=== PATIENT | female | born 1930 | race Caucasian/White ===

== ENCOUNTER 2018-07-09 12:26 | Outpatient (CLI) | payer MEDICARE, OTHER ==
--- NOTE | 2018-07-09 13:48 | MMO ---
Bilateral MAMMO Bilat Diag [facility]. CLINICAL HISTORY: Patient is 87 years old and is seen for diagnostic exam and palpable abnormality in the left breast. The patient has no family history of breast cancer. The patient has no personal history of cancer. The patient has a history of right Excisional Biopsy in 2004 - benign. VIEWS: The views performed were: bilateral craniocaudal with tomosynthesis; bilateral mediolateral oblique with tomosynthesis; and bilateral mediolateral. FILMS COMPARED: The present examination has been compared to prior imaging studies performed at [facility] on 01/28/2013, 01/29/2014, 02/07/2015 and 07/09/2018. MAMMOGRAM FINDINGS: The breasts are heterogeneously dense, which could obscure a lesion on mammography. Finding 1: There is an asymmetry seen in the outer region of the right breast. No sonographic abnormality is seen, and this is compatible with superimposed breast tissue. Finding 2: There are no concerning mammographic or sonographic abnormalities in the area of palpable concern. The patient is referred back to her clinician. Negative imaging findings should not preclude biopsy if clinical findings are suspicious. There are no suspicious masses, suspicious calcifications, or new areas of architectural distortion. IMPRESSION: FINDING 2: THERE ARE NO CONCERNING MAMMOGRAPHIC ABNORMALITIES IN THE AREA OF PALPABLE CONCERN. THE PATIENT IS REFERRED BACK TO HER CLINICIAN. NEGATIVE IMAGING FINDINGS SHOULD NOT PRECLUDE BIOPSY IF CLINICAL FINDINGS ARE SUSPICIOUS. A ROUTINE FOLLOW-UP MAMMOGRAM IN 1 YEAR IS RECOMMENDED. THE RESULTS OF THIS EXAM WERE SENT TO THE PATIENT. ACR BI-RADS Category 2 - Benign finding MAMMOGRAPHY NOTE: 1. A negative mammogram report should not delay a biopsy if a dominant of clinically suspicious mass is present. 2. Approximately 10% to 15% of breast cancers are not detected by mammography. 3. Adenosis and dense breasts may obscure an underlying neoplasm.
--- NOTE | 2018-07-09 14:09 | ULT ---
LIMITED RIGHT BREAST ULTRASOUND: Date: 07/09/18 PROVIDED CLINICAL HISTORY: Abnormal mammogram. FINDINGS: Limited sonographic interrogation was performed of the outer right breast in the region of mammograph ic concern. No discrete sonographic abnormality is evident. An area of measured echogenicity on the s ubmitted images is not a persistent finding at real-time imaging. The mammographic abnormality is com patible with superimposed tissue. IMPRESSION: BIRADS Category 2 - Benign findings. Please see concurrently dictated left breast ultrasound and diag nostic mammogram for recommendations. POS: OFF
--- NOTE | 2018-07-09 14:11 | ULT ---
LIMITED LEFT BREAST ULTRASOUND: Date: 07/09/18 PROVIDED CLINICAL HISTORY: Left breast palpable abnormality. FINDINGS: Limited sonographic interrogation of the left breast was performed in the region of palpable concern. A simple cyst is seen, measuring about 7 mm. No concerning sonographic findings. IMPRESSION: BIRADS Category 2 - Benign findings. Negative imaging findings should not preclude further evaluation of clinically suspicious area. The patient is referred back to her clinician. POS: OFF
== END 2018-07-09 12:27 | disposition home or self-care (01) ==
LOC: BICMAMMO 12:26
PROVIDERS: ATTEND Specialist
DX: N63.20 Unspecified lump in the left breast, unspecified quadrant (principal)
CPT/HCPCS: 76642 ×2; 77066; G0279

== ENCOUNTER 2018-07-10 12:08 | Outpatient (CLI) | payer MEDICARE, OTHER ==
--- NOTE | 2018-07-10 12:35 | HP ---
HISTORY OF PRESENT ILLNESS: Pili Madrid, 87-year-old female, who lives in [place]. She has had a left breast mass medial retroareolar for 3 to 4 weeks. It is slightly tender and painful. She is referred by Dr. Bee. I initially saw her a few days ago when she underwent after that visit mammogram ultrasound which were normal. She has a history of fibrocystic disease. Considering the tender nature, plan is to do excisional biopsy under anesthesia choice by anesthesiologist, IV sedation local versus LMA general. FAMILY HISTORY: Negative for breast cancer. She does report a history of fibrocystic disease. SOCIAL HISTORY: Tobacco none. Alcohol none. MEDICATIONS: 1. Pindolol 5 mg once a day. 2. Vitamin K, B6. 3. P.r.n. lorazepam. 4. Prilosec. 5. Tizanidine 2 mg as needed. 6. Trazodone 50 mg at bedtime. 7. Dicyclomine 4 times a day. PAST SURGICAL HISTORY: Postsurgical fusion by Dr. Lyons in 2005; lumbar fusion, 1969; cataract removal without lens implant; right total knee replacement, 2011. PAST MEDICAL HISTORY: Peripheral neuropathy, hypertension, arthritis. REVIEW OF SYSTEMS: Ten-point noncontributory. PHYSICAL EXAMINATION: VITAL SIGNS: Weight 134.2 pounds, height 64 inches, 223 BMI, blood pressure 175/75, heart rate 61, temperature 97 degrees. HEAD, EARS, EYES, NOSE, AND THROAT: Unremarkable. LUNGS: Clear to auscultation. CARDIAC: Regular rate and rhythm. No murmur or gallop. ABDOMEN: Soft and nontender. EXTREMITIES: Unremarkable. BREASTS: Right breast without masses. Axilla, without masses. Left breast, medial retroareolar reveals a 2.5 cm firm mass, that is slightly tender. There are no skin changes. This is beneath the medial areolar area. ASSESSMENT AND PLAN: Left breast mass with negative ultrasound mammogram. Due to its tender nature, I do not think she would tolerate biopsy in the office plus it is small. We would plan excisional biopsy as an outpatient. She understands risks, benefits, and consents. Job ID: [id number]
[2018-07-10 13:30] LABS: #Eosinphils 0.2 thou/uL (0.0-0.7); #Lymphocytes 1.5 thou/uL (1.20-3.40); #Monocytes 0.8 thou/uL (0.11-0.59); #Neutrophils 4.8 thou/uL (1.40-6.50); %Basophils 0.3 % (0.0-1.0); %Eosinophils 2.2 % (0.0-10.0); %Monocytes 10.5 % (0.0-10.0); %Neutrophils 66.1 % (42.0-75.0); Hemoglobin 13.6 g/dL (12.0-16.0); Mean Corpuscular HGB CONC 31.7 g/dL (32.0-36.0); Mean Corpuscular Hemoglobin 32.3 pg (27.0-31.0); Mean Platelet Volume 6.5 fL (7.4-10.4); Platelet Count 254 thou/uL (130-400); White Blood Cell (WBC) Count 7.2 thou/uL (4.8-10.8)
[2018-07-10 13:55] LABS: ALT (SGPT) 14 U/L (8-55); AST (SGOT) 20 U/L (5-34); Albumin 4.2 g/dL (3.4-4.8); Alkaline Phosphatase 67 U/L (40-150); Anion Gap 11 mmol/L (10-20); BUN (Urea Nitrogen) 11 mg/dL (9.8-20.1); Bilirubin, Total 0.5 mg/dL (0.2-1.2); Calc. Creatinine Clearance 0 mL/min (70-130); Calcium 10.2 mg/dL (7.8-10.44); Carbon Dioxide 35 mmol/L (23-31); Chloride 93 mmol/L (98-107); Estimated GFR-MDRD 69; Globulin 2.9 g/dL (2.4-3.5); Glucose 92 mg/dL (83-110); Potassium 4.3 mmol/L (3.5-5.1); Protein, Total 7.1 g/dL (6.0-8.3); Sodium 135 mmol/L (136-145)
== END 2018-07-10 12:09 | disposition home or self-care (01) ==
LOC: LABBT 12:08
PROVIDERS: ATTEND Specialist
DX: Z01.818 Encounter for other preprocedural examination (principal); N63.20 Unspecified lump in the left breast, unspecified quadrant
CPT/HCPCS: 80053; 85025; 93005; 93010

== ENCOUNTER 2018-07-11 06:00 | Day surgery (SDC) | payer MEDICARE, OTHER ==
[2018-07-10 12:22] VITALS: BMI 20.3
[2018-07-11] MEDS ORDERED: Ketorolac Tromethamine 30 MG/ML VIAL ONE (06:25)
[2018-07-11] MEDS ORDERED: Fentanyl 100 MCG/2 ML VIAL ONE ×2 (06:56)
[2018-07-11] MEDS ORDERED: Lidocaine 2% PF 5 ML VIAL ONE (07:15)
[2018-07-11] MEDS ORDERED: Bupivacaine HCl 0.5%/Epinephrine 1:200,000/PF 30 ml Vial ONE (07:15)
--- NOTE | 2018-07-11 11:45 | OP ---
DATE OF PROCEDURE: 07/11/2018 PREOPERATIVE DIAGNOSES: Left breast mass, history of fibrocystic disease. POSTOPERATIVE DIAGNOSIS: Left breast mass, history of fibrocystic disease. PROCEDURE PERFORMED: Excisional biopsy of retroareolar medial left breast mass. ANESTHESIA: LMA general, local of 0.5% Marcaine with epinephrine 30 mL mixed with 2% Xylocaine 10 mL, total volume used. DESCRIPTION OF PROCEDURE: The patient was taken to the operating room, where under general LMA anesthesia, left breast was prepared with ChloraPrep and draped in routine fashion. Local anesthetic was infiltrated in the skin and subcutaneous tissue about the medial areolar border and carried down through the skin and subcutaneous tissue, and the areola and the subcutaneous tissue dissected free from overlying the palpable mass, which was dissected free and excised. It appeared to be fibrocystic disease with greenish discharge. It was submitted to Pathology. Hemostasis was gained with the cautery. Subcutaneous tissue was approximated with 3-0 Monocryl, skin with interrupted subdermal 4-0 Monocryl and biopsy cavity filled with local anesthetic and Dermabond applied. The patient tolerated the procedure well. Job ID: [id number]
[2018-07-11] MEDS ORDERED: Lidocaine 1% PF 5 ML VIAL ONE (16:01)
[2018-07-11] MEDS ORDERED: PROPOFOL 200 MG/20 ML VIAL ONE (16:01)
[2018-07-11] MEDS ORDERED: Ondansetron PF 4 MG/2 ML Vial ONE (16:01)
[2018-07-11] MEDS ORDERED: Dexamethasone 20 MG/5 ML VIAL ONE (16:01)
[2018-07-11] MEDS ORDERED: ePHEDrine 50 MG/ML VIAL ONE (16:01)
== END 2018-07-11 10:30 | disposition home or self-care (01) ==
LOC: SDC 06:00
PROVIDERS: ATTEND Specialist
PROC: 0HBU0ZZ Excision of Left Breast, Open Approach (ICD-10-PCS; principal; 2018-07-11)
DX: N60.32 Fibrosclerosis of left breast (principal); M19.90 Unspecified osteoarthritis, unspecified site; I10 Essential (primary) hypertension; G62.9 Polyneuropathy, unspecified; Z88.2 Allergy status to sulfonamides; Z88.5 Allergy status to narcotic agent; Z79.899 Other long term (current) drug therapy
CPT/HCPCS: 88305; 88342; J0131; J0670; J0690; J1100; J1885; J2001; J2405; J2704; J3010; J3490

== ENCOUNTER 2018-09-17 01:29 | Observation (INO) | payer MEDICARE, OTHER ==
[2018-09-17 02:03] LABS: #Eosinphils 0.2 thou/uL (0.0-0.7); #Lymphocytes 1.1 thou/uL (1.20-3.40); #Monocytes 0.9 thou/uL (0.11-0.59); #Neutrophils 4.1 thou/uL (1.40-6.50); %Basophils 0.5 % (0.0-1.0); %Monocytes 14.1 % (0.0-10.0); %Neutrophils 64.5 % (42.0-75.0); Mean Corpuscular Hemoglobin 31.8 pg (27.0-31.0); Mean Corpuscular Volume 99.3 fL (78.0-98.0); Mean Platelet Volume 6.4 fL (7.4-10.4); Platelet Count 371 thou/uL (130-400); RBC Distribution Width 13.2 % (11.5-14.5); Red Blood Cell (RBC) Count 3.79 mill/uL (4.20-5.40); White Blood Cell (WBC) Count 6.3 thou/uL (4.8-10.8)
[2018-09-17 02:23] LABS: ALT (SGPT) 9 U/L (8-55); AST (SGOT) 15 U/L (5-34); Albumin 3.7 g/dL (3.4-4.8); Alkaline Phosphatase 119 U/L (40-150); Anion Gap 13 mmol/L (10-20); BUN (Urea Nitrogen) 13 mg/dL (9.8-20.1); Bilirubin, Total 0.6 mg/dL (0.2-1.2); CK (CPK) 34 U/L (29-168); Calc. Creatinine Clearance 0 mL/min (70-130); Calcium 9.1 mg/dL (7.8-10.44); Carbon Dioxide 24 mmol/L (23-31); Chloride 89 mmol/L (98-107); Estimated GFR-MDRD 54; Globulin 2.4 g/dL (2.4-3.5); Glucose 120 mg/dL (83-110); Potassium 4.8 mmol/L (3.5-5.1); Protein, Total 6.1 g/dL (6.0-8.3); Sodium 121 mmol/L (136-145)
--- NOTE | 2018-09-17 07:53 | HP ---
PRIMARY CARE PROVIDER: Dr. Kasi Bee. CHIEF COMPLAINT: Generalized weakness and hypotension. HISTORY OF PRESENT ILLNESS: This is an 87-year-old female, who presents to [facility] Emergency Department in transfer from [facility]. The patient has been receiving therapy over the last 2 weeks, status post 4-vessel coronary artery bypass grafting performed at [facility] in [place], [place]. The patient states she had been well with therapy, ambulating up to 330 feet with minimal assistance. The patient was planning to transition home in the next several days, when screening metabolic survey revealed a sodium of 120, associated with hypotension and general weakness. The patient states she has had poor appetite over the last several days with some associated nausea. The patient states she was also initiated on Lexapro in the last 3 weeks after her coronary artery bypass grafting. The patient was apparently lethargic and minimally responsive at the rehab facility prompting the staff to notify EMS personnel. EMS personnel arrived and was able to awaken the patient with stable vital signs. The patient also states she was recently treated with ciprofloxacin for urinary tract infection with urine culture showing E. coli species. The patient denied any unilateral weakness, chest pain, fever, chills, or exposure history. In the emergency room, patient underwent general evaluation with metabolic screening showing a sodium of 121. Serum osmolality 253. PAST MEDICAL HISTORY: 1. Coronary artery disease, status post 4-vessel coronary artery bypass grafting 08/2018. 2. Atrial fibrillation, rate controlled. 3. Hyperlipidemia. 4. Hypertension. 5. Chronic back pain. PAST SURGICAL HISTORY: 1. Status post coronary artery bypass grafting x4 vessels. 2. Status post right total knee arthroplasty. 3. Status post cervical spine surgery. 4. Status post appendectomy. 5. Status post cholecystectomy. 6. Status post partial hysterectomy. CURRENT MEDICATIONS: 1. Enteric-coated aspirin 81 mg p.o. daily. 2. Calcium carbonate 500 mg 1 to 2 tablets p.o. b.i.d. 3. Clonidine 0.1 mg p.o. q.6 hours p.r.n. 4. Gabapentin 300 mg p.o. t.i.d. 5. Potassium chloride 10 mEq p.o. daily. 6. Tramadol 50 mg p.o. q.6 hours p.r.n. pain. 7. Lipitor 20 mg p.o. at bedtime. 8. Amiodarone 200 mg p.o. daily. 9. Tizanidine 4 mg p.o. t.i.d. p.r.n. ALLERGIES: TO CODEINE, STATINS, AND SULFA. FAMILY HISTORY: No inheritable diseases per patient report. SOCIAL HISTORY: Resides in the [facility]. No current alcohol, tobacco, or illicit drug use. Ambulates with a rolling walker. REVIEW OF SYSTEMS: CONSTITUTIONAL: Negative for weight loss or gain, ability to conduct usual activities. SKIN: Negative for rash, itching. EYES: Negative for double vision, pain. ENT/MOUTH: Negative for nose bleeding, neck stiffness, pain, tenderness. CARDIOVASCULAR: Negative for palpitations, dyspnea on exertion, orthopnea. RESPIRATORY: Negative for shortness of breath, wheezing, cough, hemoptysis, fever or night sweats. GASTROINTESTINAL: Negative for poor appetite, abdominal pain, heartburn, nausea, vomiting, constipation, or diarrhea. GENITOURINARY: Negative for urgency, frequency, dysuria, nocturia. MUSCULOSKELETAL: Negative for pain, swelling. NEUROLOGIC/PSYCHIATRIC: Negative for anxiety, depression. ALLERGY/IMMUNOLOGIC: Negative for skin rash, bleeding tendency. Otherwise negative except as stated per HPI. PHYSICAL EXAMINATION: VITAL SIGNS: On admission, blood pressure 116/58, pulse 55, respiratory rate 15, temperature 98.7 degrees Fahrenheit, O2 saturation 95% on room air. GENERAL APPEARANCE: This is an 87-year-old female, alert and oriented x3, pleasant, responsive, in no acute distress. HEENT: Pupils are equal, round, and reactive to light and accommodation. Extraocular muscles are intact. No scleral icterus. No conjunctival injection. Nares patent. OP is clear. Oral mucosa dry. NECK: Supple. No cervical adenopathy. No thyromegaly. No carotid bruits. No JVD appreciated. Cervical spine with full active and passive range of motion. No meningeal signs noted. CHEST: Lungs are clear to auscultation bilaterally. CARDIOVASCULAR: S1, S2 without noted murmur, rub, or gallop. ABDOMEN: Rounded, soft, nontender, and nondistended. Bowel sounds are positive in all 4 quadrants. There is no hepatosplenomegaly. No abdominal bruits. No rebound or guarding appreciated. EXTREMITIES: Warm and dry with fair turgor. Ecchymosis noted to the left lower extremity. No asymmetric edema appreciated. Pulses palpable distally at the dorsalis pedis, posterior tibial, and popliteal arteries bilaterally. Capillary refill less than 2 seconds. NEUROLOGIC: Cranial nerves 2 through 12 are grossly intact. No focal or lateralizing signs appreciated. PERTINENT LAB AND X-RAY FINDINGS: Sodium 121, potassium 4.8, chloride 89, CO2 of 24, BUN 13, creatinine 0.98, glucose 120, serum osmolality 253, lactic acid level 1.3, calcium 9.1. LFTs within normal limits. Troponin-I negative x1. CBC showed a white blood cell count of 6.3, hemoglobin 12, hematocrit 38, MCV 99, platelet count 371, with 65% neutrophils. EKG dated 09/17/2018 by my interpretation shows a sinus bradycardia with heart rates in the mid 50s. Attenuated R-waves noted in the precordial leads. Normal axis. Left bundle-branch block pattern noted. ASSESSMENT AND PLAN: 1. Hyponatremia. Suspect multifactorial including poor oral intake, low-sodium diet, and initiation of Lexapro. We will initiate intravenous normal saline at 50 mL/h. Serial sodium monitoring. Hold Lexapro. Check TSH and cortisol level. 2. Hypotension. Suspect iatrogenic including volume depletion and dehydration. We will continue low volume IV fluids and hold antihypertensive regimen. Serial blood pressure monitoring. 3. Acute metabolic encephalopathy. Suspect multifactorial including hypotension and hyponatremia. Improved currently. Continue to monitor clinically. Anticipate clinical improvement with correction of underlying electrolyte disturbance and volume status. 4. Coronary artery disease. Status post coronary artery bypass grafting x4 vessels. Stable currently. Continue aspirin 81 mg daily. Telemetry monitoring. 5. Prophylaxis. SCDs while in bed. Pepcid 20 mg p.o. b.i.d. 6. Code status is full. Surrogate medical decision maker is the patient's spouse. Job ID: [id number]
[2018-09-17] MEDS ORDERED: Ondansetron ODT 4 MG TAB SL PRN (08:19)
[2018-09-17] MEDS ORDERED: Ondansetron PF 4 MG/2 ML Vial IVP PRN (08:19)
[2018-09-17] MEDS ORDERED: Famotidine 20 MG TAB PO SCH (09:00)
[2018-09-17] MEDS ORDERED: Nitroglycerin 0.4 MG TAB (25 Tab Bottle) PO PRN (09:34)
[2018-09-17] MEDS ORDERED: Aspirin 325 mg Enteric Coated Tablet PO SCH (10:00)
[2018-09-17 10:16] LABS: Phosphorus 3.2 mg/dL (2.3-4.7)
[2018-09-17 10:19] LABS: Anion Gap 12 mmol/L (10-20); BUN (Urea Nitrogen) 14 mg/dL (9.8-20.1); Calc. Creatinine Clearance 0 mL/min (70-130); Calcium 9.5 mg/dL (7.8-10.44); Carbon Dioxide 27 mmol/L (23-31); Chloride 87 mmol/L (98-107); Estimated GFR-MDRD 50; Glucose 108 mg/dL (83-110); Magnesium 1.9 mg/dL (1.6-2.6); Potassium 4.6 mmol/L (3.5-5.1); Sodium 121 mmol/L (136-145)
[2018-09-17] MEDS: Sodium Chloride 0.9% 1,000 ML IV SCH (11:23)
[2018-09-17 12:41] VITALS: BMI 19.3
--- NOTE | 2018-09-17 14:23 | CON ---
DATE OF CONSULTATION: 09/17/2018 CONSULTING PHYSICIAN: Dr. Owens. REASON FOR CONSULT: Hyponatremia. REASON FOR ADMISSION: Weakness. HISTORY OF PRESENT ILLNESS: This is an 87-year-old female with history of CAD, hyperlipidemia, hypertension, admitted with weakness and was found to have hyponatremia. Nephrology is consulted. The patient is having poor appetite and low intake for the last few days. No chest pain or palpitation. PAST MEDICAL HISTORY: Positive for coronary artery disease, atrial fibrillation, hypertension, hyperlipidemia, chronic back pain. PAST SURGICAL HISTORY: CABG, right knee surgery, cervical spine surgery, appendectomy, cholecystectomy, hysterectomy. HOME MEDICATIONS: 1. Aspirin. 2. Calcium. 3. Clonidine. 4. Gabapentin. 5. Potassium. 6. Tramadol. 7. Lipitor. 8. Amiodarone. 9. Tizanidine. ALLERGIES: TO CODEINE, STATINS, AND SULFA. SOCIAL HISTORY: No smoking, alcohol, or illicit drugs. FAMILY HISTORY: No history of kidney disease. REVIEW OF SYSTEMS: CONSTITUTIONAL: Negative for weight loss or gain, ability to conduct usual activities. SKIN: Negative for rash, itching. EYES: Negative for double vision, pain. ENT/MOUTH: Negative for nose bleeding, neck stiffness, pain, tenderness. CARDIOVASCULAR: Negative for palpitations, dyspnea on exertion, orthopnea. RESPIRATORY: Negative for shortness of breath, wheezing, cough, hemoptysis, fever or night sweats. GASTROINTESTINAL: Negative for poor appetite, abdominal pain, heartburn, nausea, vomiting, constipation, or diarrhea. GENITOURINARY: Negative for urgency, frequency, dysuria, nocturia. MUSCULOSKELETAL: Negative for pain, swelling. NEUROLOGIC/PSYCHIATRIC: Negative for anxiety, depression. ALLERGY/IMMUNOLOGIC: Negative for skin rash, bleeding tendency. PHYSICAL EXAMINATION: GENERAL: This is a well-built female, in no apparent distress. VITAL SIGNS: Temperature 98.7, pulse 54, respiratory rate 18, blood pressure 116/50. HEENT: Atraumatic, normocephalic. Oral mucosa is dry. NECK: Supple. CV: S1 and S2. Rate and rhythm regular. RESPIRATORY: Clear. GI: Abdomen is soft. MUSCULOSKELETAL: 1+ edema. DERMATOLOGIC: No skin rash. NEUROLOGIC: Alert and awake. PSYCHIATRIC: Normal mood and affect. LABORATORY DATA: Hemoglobin is 12.0. Potassium is 4.6, sodium is 121, BUN is 14, and creatinine is 1.0. ASSESSMENT AND PLAN: 1. Hyponatremia, most likely from volume depletion. Agree with hydration. Monitor sodium closely. 2. Edema . 3. Hypertension, stable. 4. Hypochloremia. 5. Hypertension. Agree with hydration as tolerated. We will monitor cardiorespiratory status. 6. We will continue to monitor. Job ID: [id number]
[2018-09-17] MEDS ORDERED: traMADol HCl 50 MG TAB PO PRN (15:46)
[2018-09-17] MEDS ORDERED: tiZANidine HCl 4 MG TAB PO PRN (15:46)
[2018-09-17 19:14] LABS: Sodium 121 mmol/L (136-145)
[2018-09-17] MEDS: Gabapentin 300 MG CAP PO SCH (21:37)
[2018-09-17] MEDS: Lorazepam 0.5 MG TAB PO SCH (21:37)
[2018-09-18] MEDS: Sodium Chloride 0.9% 1,000 ML IV SCH (05:27)
[2018-09-18 05:34] LABS: Anion Gap 12 mmol/L (10-20); BUN (Urea Nitrogen) 10 mg/dL (9.8-20.1); Calc. Creatinine Clearance 46 mL/min (70-130); Calcium 9.3 mg/dL (7.8-10.44); Carbon Dioxide 24 mmol/L (23-31); Chloride 94 mmol/L (98-107); Estimated GFR-MDRD 69; Glucose 91 mg/dL (83-110); Potassium 4.1 mmol/L (3.5-5.1); Sodium 126 mmol/L (136-145)
[2018-09-18 06:55] LABS: Hemoglobin 11.3 g/dL (12.0-16.0); Mean Corpuscular HGB CONC 32.6 g/dL (32.0-36.0); Mean Corpuscular Hemoglobin 32.1 pg (27.0-31.0); Mean Corpuscular Volume 98.2 fL (78.0-98.0); Mean Platelet Volume 6.9 fL (7.4-10.4); Platelet Count 351 thou/uL (130-400); Red Blood Cell (RBC) Count 3.52 mill/uL (4.20-5.40); White Blood Cell (WBC) Count 5.1 thou/uL (4.8-10.8)
[2018-09-18 07:14] LABS: Band 2 % (5-11); Eosinophils 4 % (0-10); Lymphocytes 17 % (21-51); MDiff Complete? YES; Monocytes 8 % (0-10); Neutrophil 63 % (42-75); RBC Morphology Normal; Reactive Lymphocytes 6 % (0-10)
[2018-09-18] MEDS: Aspirin Chewable 81 MG TAB PO SCH (08:52)
[2018-09-18] MEDS: Amiodarone 200 MG TAB PO SCH (08:52)
[2018-09-18] MEDS: Calcium Carbonate 600 MG TAB PO SCH (08:52)
[2018-09-18] MEDS: Potassium Chloride 10 MEQ TAB PO SCH (08:53)
[2018-09-18] MEDS: Gabapentin 300 MG CAP PO SCH ×2 (08:53→20:10)
[2018-09-18] MEDS ORDERED: Aspirin 325 mg Enteric Coated Tablet PO SCH (09:00)
[2018-09-18] MEDS ORDERED: Amlodipine 5 MG TAB PO SCH (09:30)
--- NOTE | 2018-09-18 12:09 | PRG ---
DATE OF SERVICE: 09/18/2018 SUBJECTIVE: Patient was seen and examined at bedside and overnight events noted. Patient denies any shortness of breath or chest pain or palpitation. No history of nausea or vomiting or diarrhea or fever or chills or cramps. OBJECTIVE: GENERAL: This is an elderly female, in no apparent distress. VITAL SIGNS: Temperature 99.3. Pulse 64. Respiratory rate 16. Blood pressure 188/83. HEENT: Atraumatic, normocephalic. Oral mucosa is moist NECK: Supple. CARDIOVASCULAR: S1, S2 heard. Rate and rhythm regular. RESPIRATORY: Clear to auscultation. GASTROINTESTINAL: Abdomen is soft. MUSCULOSKELETAL: No tenderness. No edema. DERMATOLOGIC: No skin rash. NEUROLOGIC: Alert and awake and oriented X3. No focal neurologic deficits. Moving all the extremities. PSYCHIATRIC: Mood and affect normal. LABORATORY DATA: Sodium is 126, potassium is 4.1, BUN is 10, and creatinine is 0.7. ASSESSMENT AND PLAN: 1. Hyponatremia. Sodium level is better. We will continue on hydration. Monitor sodium closely. 2. Edema, controlled. 3. Hypochloremia. 4. Hypertension. We will continue on IV fluids. We will follow. Job ID: [id number]
[2018-09-18] MEDS ORDERED: Lorazepam 0.5 MG TAB PO PRN (13:13)
[2018-09-18] MEDS ORDERED: hydrALAZINE 20 MG/ML VIAL SLOW IVP PRN (13:13)
[2018-09-18] MEDS ORDERED: Metoprolol Tartrate 25 MG TAB PO SCH (13:15)
--- NOTE | 2018-09-18 15:27 | PRG ---
DATE OF SERVICE: 09/18/2018 SUBJECTIVE: An 87-year-old female with recent coronary artery bypass grafting, currently at inpatient rehabilitation, presented to the hospital with generalized weakness along with orthostatic hypotension. She was found to have a sodium of 120. She was started on IV fluids per Nephrology. Symptomatically, she feels better. She denies any chest pain or palpitations at this time. No lightheadedness or dizziness. CURRENT MEDICATIONS: Reviewed. The patient is on IV fluids at 50 with amiodarone, Pepcid, gabapentin, lorazepam, and Protonix. REVIEW OF SYSTEMS: All other review of systems were reviewed and were found negative. PHYSICAL EXAMINATION: VITAL SIGNS: Temperature 99.3, pulse 64, respirations of 16, O2 saturation 95% on room air, standing blood pressure was 169/81, sitting blood pressure was 170/93. Please note that a blood pressure last night was 104/51. Intake of 1240, output 1100. Telemetry monitoring by my review showed sinus rhythm. GENERAL: An 87-year-old female, in no apparent distress. LUNGS: Clear to auscultation bilaterally. No wheezing, rales, or rhonchi. HEART: S1, S2 present. Regular rate and rhythm. No rubs or gallops. ABDOMEN: Soft, nontender. Bowel sounds present. No rebound or guarding. EXTREMITIES: No edema or calf tenderness. NEUROLOGY: Grossly nonfocal. PSYCHIATRY: Alert, awake, oriented x3. Normal affect. LABORATORY FINDINGS: Sodium 126 from 121 yesterday evening. BNP was 215. TSH 2.3. Cortisol 15.4. IMPRESSION: 1. Hypotonic hyponatremia, multifactorial. 2. Orthostatic hypotension, probably secondary to volume depletion and dehydration. 3. Metabolic encephalopathy, probably secondary to hyponatremia, improving. 4. E. coli UTI - present on admission 5. Coronary artery disease, status post recent CABG.. 6. History of hypertension. 7. Chronic low back pain. 8. Hyperlipidemia.Paroxysmal atrial fibrillation. PLAN: We will repeat sodium later today. We will add amlodipine along with low dose beta blockers due to elevated blood pressure. I discussed with Nephrology , who recommended to continue IV fluids. We will repeat sodium level later today. Repeat basic metabolic profile in a.m. IV Ceftriaxone for UTI. Plan was discussed with the patient and the family at the bedside. They stated understanding. DISPOSITION: The patient will be discharged to inpatient rehabilitation probably in a.m. if her blood pressure and sodium are stable. Job ID: [id number] MTDD
[2018-09-18 16:37] LABS: Sodium 127 mmol/L (136-145)
[2018-09-18] MEDS: Acetaminophen 500 MG TAB PO PRN (18:46)
[2018-09-18] MEDS ORDERED: cefTRIAXone\\ROCEPHIN 1 GM in Sodium Chloride 0.9% 100 ML IVPB SCH (20:00)
[2018-09-18] MEDS: Lorazepam 0.5 MG TAB PO SCH (20:10)
[2018-09-18] MEDS: Amlodipine 5 MG TAB PO SCH (20:11)
[2018-09-18] MEDS: Metoprolol Tartrate 25 MG TAB PO SCH (20:15)
[2018-09-19 06:30] LABS: Anion Gap 13 mmol/L (10-20); BUN (Urea Nitrogen) 7 mg/dL (9.8-20.1); Calc. Creatinine Clearance 45 mL/min (70-130); Calcium 9.9 mg/dL (7.8-10.44); Carbon Dioxide 27 mmol/L (23-31); Chloride 90 mmol/L (98-107); Estimated GFR-MDRD 70; Glucose 106 mg/dL (83-110); Potassium 3.5 mmol/L (3.5-5.1); Sodium 126 mmol/L (136-145)
[2018-09-19] MEDS: Aspirin Chewable 81 MG TAB PO SCH (08:38)
[2018-09-19] MEDS: Amiodarone 200 MG TAB PO SCH (08:38)
[2018-09-19] MEDS: Potassium Chloride 10 MEQ TAB PO SCH (08:38)
[2018-09-19] MEDS: Metoprolol Tartrate 25 MG TAB PO SCH (08:38)
[2018-09-19] MEDS: Gabapentin 300 MG CAP PO SCH (08:39)
[2018-09-19] MEDS: Calcium Carbonate 600 MG TAB PO SCH (08:39)
[2018-09-19] MEDS: Amlodipine 5 MG TAB PO SCH (08:39)
[2018-09-19] MEDS ORDERED: Amlodipine 5 MG TAB PO SCH (09:00)
[2018-09-19 13:02] VITALS: BP 144/68; TEMP 97.6
--- NOTE | 2018-09-19 14:40 | DIS ---
DATE OF ADMISSION: 09/17/2018 DATE OF DISCHARGE: 09/19/2018 DISCHARGE DISPOSITION: Inpatient rehabilitation. FOLLOWUP: 1. Follow up with primary care physician, Dr. Kasi Bee in 1 week. 2. Follow up with Nephrology, Dr. Munson after 1 week. Basic metabolic profile in 3 days is recommended. The results to be notified to Dr. Munson. DISCHARGE MEDICATIONS: 1. Lexapro is currently on hold. 2. Low-dose amlodipine 2.5 mg was added. 3. Lopressor 12.5 mg was added as well. 4. She will complete another four days of Omnicef 300 mg b.i.d. for UTI. 5. All other home medications were left unchanged. The patient was seen and examined on the day of discharge. Denies any new complaints. No chest pain, shortness of breath, or palpitations. DIAGNOSTIC TESTS: Echocardiogram showed left ventricular ejection fraction of 50% to 55% with grade 1 of 3 diastolic dysfunction, mild tricuspid regurgitation. BRIEF HOSPITAL COURSE: The patient is an 87-year-old female with recent coronary artery bypass grafting, currently at inpatient rehabilitation, presented to the hospital with generalized weakness along with orthostatic hypotension. Her sodium at the rehab was 120. She was monitored on the telemetry unit. 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 Lexapro is currently on hold. She was started on IV fluids with good improvement. Her sodium at discharge is 126. Yesterday, it was 127. The patient has been cleared by Nephrology for discharge. The patient was found to have elevated blood pressure up to 180 to 200 systolic yesterday. Low-dose amlodipine and metoprolol have been added. Her blood pressure on the day of discharge is 144/68. She will benefit from a repeat orthostatic vitals. Prior to discharge, the patient had a urinalysis that was consistent with UTI. Urine cultures from the rehab showed E coli, sensitive to cephalosporins. She was started on IV ceftriaxone during this hospital stay and that has been changed to Omnicef. She appears stable for discharge to inpatient rehabilitation. FINAL DIAGNOSES: 1. Generalized weakness, multifactorial. 2. Hypotonic hyponatremia, improving. Probably secondary to dehydration with syndrome of inappropriate antidiuretic hormone secretion. Lexapro discontinued. 3. Orthostatic hypotension, probably secondary to volume depletion, improved. 4. Metabolic encephalopathy, improved. 5. Escherichia coli urinary tract infection present on admission. 6. Coronary artery disease, status post recent coronary artery bypass grafting. 7. Hypertension. 8. Chronic low back pain. 9. Hyperlipidemia. 10. Paroxysmal atrial fibrillation. SIGNIFICANT LABORATORY DATA: Urine osmolality 151, urine sodium 24, cortisol level 15.4, TSH 2.38, serum osmolality 253. BNP of 215. Troponin was negative. Lactic acid was normal. Uric acid was 3.0. PLAN: Plan was discussed with the patient and the family at the bedside. They stated understanding. Job ID: [id number]
[2018-09-19] MEDS: Acetaminophen 500 MG TAB PO PRN (14:50)
--- NOTE | 2018-09-19 15:49 | PRG ---
DATE OF SERVICE: 09/19/2018 SUBJECTIVE: Patient was seen and examined at bedside and overnight events noted. Patient denies any shortness of breath or chest pain or palpitation. No history of nausea or vomiting or diarrhea or fever or chills or cramps. OBJECTIVE: GENERAL: This is an elderly female, in no acute distress. VITAL SIGNS: Temperature 97.6. Pulse 63. Respiratory rate 18. Blood pressure 144/68. HEENT: Atraumatic, normocephalic. Oral mucosa is moist NECK: Supple. CARDIOVASCULAR: S1, S2 heard. Rate and rhythm regular. RESPIRATORY: Clear to auscultation. GASTROINTESTINAL: Abdomen is soft. MUSCULOSKELETAL: No tenderness. No edema. DERMATOLOGIC: No skin rash. NEUROLOGIC: Alert and awake and oriented X3. No focal neurologic deficits. Moving all the extremities. PSYCHIATRIC: Mood and affect normal. LABORATORY DATA: Potassium is 3.5, BUN is 7, creatinine is 0.7. ASSESSMENT AND PLAN: 1. Hyponatremia. Sodium level is stable, which was 126. The patient is going to rehab. Continue hydration if tolerated. Monitor labs closely. Check BMP in the next few days. 2. Edema, controlled. 3. Hypochloremia. 4. Hypertension. Continue to monitor sodium at the rehab. Job ID: [id number]
== END 2018-09-19 15:40 ==
LOC: ERS 01:29 → ERHOLD 03:10 → 2NO 09:26
PROVIDERS: ADMIT Family Medicine; ATTEND Family Medicine
DX: I95.0 Idiopathic hypotension (principal); I25.10 Atherosclerotic heart disease of native coronary artery without angina pectoris; E78.5 Hyperlipidemia, unspecified; I10 Essential (primary) hypertension; G89.29 Other chronic pain; M54.5 Low back pain; G93.41 Metabolic encephalopathy; E87.8 Other disorders of electrolyte and fluid balance, not elsewhere classified; I48.0 Paroxysmal atrial fibrillation; N39.0 Urinary tract infection, site not specified; B96.20 Unspecified Escherichia coli [E. coli] as the cause of diseases classified elsewhere; E87.1 Hypo-osmolality and hyponatremia; Z79.899 Other long term (current) drug therapy; Z88.2 Allergy status to sulfonamides; Z88.5 Allergy status to narcotic agent; Z88.8 Allergy status to other drugs, medicaments and biological substances; Z95.1 Presence of aortocoronary bypass graft
CPT/HCPCS: 80048 ×3; 82533; 82550; 83605; 83735; 83880; 83930; 83935; 84100; 84295 ×2; 84300; 84484; 84550; 85007; 85027; 93306; 96374; 96375; 97116 ×2; 97139; 99285; G0378 ×3; 36415; 84443; J0360; J0696; J3490

== ENCOUNTER 2019-09-27 09:28 | Emergency (ER) | payer MEDICARE, BC, OTHER ==
[2019-09-27 09:42] LABS: #Eosinphils 0.4 thou/uL (0.0-0.7); #Monocytes 1.4 thou/uL (0.11-0.59); #Neutrophils 15.4 thou/uL (1.40-6.50); %Basophils 0.1 % (0.0-1.0); %Eosinophils 1.9 % (0.0-10.0); %Lymphocytes 10.4 % (21.0-51.0); %Monocytes 7.3 % (0.0-10.0); %Neutrophils 80.3 % (42.0-75.0); Mean Corpuscular HGB CONC 33.3 g/dL (32.0-36.0); Mean Platelet Volume 7.2 fL (7.4-10.4); Platelet Count 264 thou/uL (130-400); Red Blood Cell (RBC) Count 4.11 mill/uL (4.20-5.40); White Blood Cell (WBC) Count 19.1 thou/uL (4.8-10.8)
[2019-09-27 09:55] LABS: ALT (SGPT) 21 U/L (8-55); AST (SGOT) 21 U/L (5-34); Albumin 3.7 g/dL (3.4-4.8); Alkaline Phosphatase 71 U/L (40-110); Anion Gap 10 mmol/L (10-20); BUN (Urea Nitrogen) 16 mg/dL (9.8-20.1); Bilirubin, Total 0.4 mg/dL (0.2-1.2); CK (CPK) 21 U/L (29-168); Calc. Creatinine Clearance 0 mL/min (70-130); Calcium 8.8 mg/dL (7.8-10.44); Carbon Dioxide 29 mmol/L (23-31); Chloride 97 mmol/L (98-107); Estimated GFR-MDRD 64; Globulin 2.9 g/dL (2.4-3.5); Glucose 150 mg/dL (83-110); Lipase 19 U/L (8-78); Potassium 3.9 mmol/L (3.5-5.1); Protein, Total 6.6 g/dL (6.0-8.3); Sodium 132 mmol/L (136-145)
--- NOTE | 2019-09-27 09:59 | RAD ---
EXAM: Single view of the chest HISTORY: Chest pain COMPARISON: 04/09/2016 FINDINGS: Single view of the chest shows a normal sized cardiomediastinal silhouette. Atheroscleroti c calcifications are seen in the aorta. The patient is status post sternotomy. There is no evidence of consolidation, mass, or pleural effusion. Degenerative changes are seen in the spine and shoulders . Postsurgical changes are seen in the spine and right shoulder. IMPRESSION: No evidence of acute cardiopulmonary disease
[2019-09-27] MEDS ORDERED: Fentanyl 100 MCG/2 ML VIAL ONE ×2 (10:17→12:51)
[2019-09-27] MEDS ORDERED: Ondansetron PF 4 MG/2 ML Vial ONE (10:19)
--- NOTE | 2019-09-27 14:01 | RAD ---
LEFT SHOULDER THREE VIEWS: History: Left shoulder pain. FINDINGS: There are degenerative changes in the glenohumeral and acromial clavicular joints. No acute fracture or dislocation is seen. There is a well corticated bony density likely a loose body in the acromial s pace. POS: [facility]
[2019-09-27] MEDS ORDERED: Hydrocodone-Acetamin 15 ML UDCUP ONE (15:09)
[2019-09-27] MEDS ORDERED: HYDROcodone/Acetaminophen 7.5/325 mg Tablet ONE (15:10)
--- NOTE | 2019-09-28 01:44 | SS ---
DATE OF ADMISSION: 09/27/2019 DATE OF DISCHARGE: 09/27/2019 HISTORY OF PRESENT ILLNESS: Ms. Madrid is an 88-year-old female, with a medical history of coronary artery disease, status post CABG; cervical spine fusion and foraminal stenosis, who presents with acute on chronic left neck and left shoulder pain. Per the patient, she has had this pain for months if not years, which has limited her left shoulder movement. This morning, on waking up, she felt that the pain was worse than before and she could barely move the shoulder, so she came to the ED. On encounter, she further endorsed that the pain was worse when walking, but only because walking made her left shoulder move. Denied fatigue, chest pain, palpitations, jaw pain, upper back pain, dyspnea on exertion, nausea, vomiting, bleeding, diarrhea, melena, or hematochezia. PHYSICAL EXAMINATION: GENERAL: Patient was lying comfortably in bed, in no apparent distress. HEENT: Normocephalic, atraumatic. Anicteric sclerae. No JVD. CARDIAC: Regular rate and rhythm. No murmurs, gallops, or rubs. LUNGS: Clear to auscultation bilaterally. No wheezing, rales, or rhonchi. ABDOMEN: Soft, nontender, and nondistended. Normal bowel sounds. EXTREMITY: All extremities had normal passive and active range of motion with the exception of the left upper extremity. Palpation of the posterior glenohumeral joint resulted in moderate tenderness and the patient was unable to actively or passively move the shoulder without eliciting pain. PSYCHIATRIC: Proper mood and affect. Alert and oriented x3. LABORATORY DATA AND IMAGING STUDIES: Labs and imaging. Troponin and CK were negative about 3 hours after the onset of the pain. Chest x-ray showed no acute cardiopulmonary process. EKG showed the left bundle-branch block that was old. Sgarbossa criteria was negative. Concerning the patient's presentation and labs, I did not feel it necessary to admit the patient for ACS rule out. I requested the ED staff to take another troponin prior to discharge at around noon in order to reinforce the noncardiac nature of the patient's presentation. The patient was discharged with followup appointments with her primary care physician and Orthopedic Surgery to further manage her most likely cervical radiculopathy and left shoulder osteoarthritis. Job ID: [id number]
== END 2019-09-27 15:44 | disposition home health service (06) ==
LOC: ERS 09:28
DX: R07.9 Chest pain, unspecified (principal); I25.10 Atherosclerotic heart disease of native coronary artery without angina pectoris; I48.91 Unspecified atrial fibrillation; E78.5 Hyperlipidemia, unspecified; I10 Essential (primary) hypertension; Z79.899 Other long term (current) drug therapy; Z79.82 Long term (current) use of aspirin
CPT/HCPCS: 36415; 71045; 80053; 82550; 83690; 84484; 85025; 93005; 94760; 96361; 96374; 96375; 96376; J2405; J3010

== ENCOUNTER 2020-05-12 23:18 | Emergency (ER) | payer MEDICARE, OTHER, BC ==
[2020-05-12] MEDS ORDERED: HYDROcodone/Acetaminophen 5/325 mg Tablet ONE (23:41)
[2020-05-12] MEDS ORDERED: Ondansetron ODT 8 MG TAB ONE (23:41)
== END 2020-05-13 01:04 | disposition home or self-care (01) ==
LOC: ERS 23:18
DX: B02.9 Zoster without complications (principal); I48.91 Unspecified atrial fibrillation; E78.5 Hyperlipidemia, unspecified; I10 Essential (primary) hypertension; Z79.899 Other long term (current) drug therapy
CPT/HCPCS: 99283; Q0162

== ENCOUNTER 2020-05-15 18:44 | Emergency (ER) | payer MEDICARE, OTHER, BC ==
[2020-05-15] MEDS ORDERED: HYDROcodone/Acetaminophen 5/325 mg Tablet ONE (19:31)
== END 2020-05-15 20:52 | disposition home or self-care (01) ==
LOC: ERS 18:44
DX: B02.9 Zoster without complications (principal); I48.91 Unspecified atrial fibrillation; E78.5 Hyperlipidemia, unspecified; I10 Essential (primary) hypertension
CPT/HCPCS: 99283

== ENCOUNTER 2020-05-18 18:01 | Inpatient (IN) | payer BC, MEDICARE, OTHER ==
[2020-05-18 19:14] LABS: #Basophils 0.1 thou/uL (0.0-0.2); #Lymphocytes 1.3 thou/uL (1.20-3.40); #Monocytes 1.1 thou/uL (0.11-0.59); #Neutrophils 9.4 thou/uL (1.40-6.50); %Basophils 0.7 % (0.0-1.0); %Eosinophils 0.1 % (0.0-10.0); %Lymphocytes 10.8 % (21.0-51.0); %Monocytes 9.1 % (0.0-10.0); %Neutrophils 79.2 % (42.0-75.0); Hemoglobin 15.2 g/dL (12.0-16.0); Mean Corpuscular HGB CONC 37.1 g/dL (32.0-36.0); Mean Corpuscular Hemoglobin 33.3 pg (27.0-31.0); Mean Platelet Volume 6.9 fL (7.4-10.4); Platelet Count 284 thou/uL (130-400); RBC Distribution Width 11.5 % (11.5-14.5); Red Blood Cell (RBC) Count 4.56 mill/uL (4.20-5.40); White Blood Cell (WBC) Count 11.8 thou/uL (4.8-10.8)
[2020-05-18] MEDS ORDERED: Vancomycin 1 GM/200 ML BAG ONE (19:15)
[2020-05-18] MEDS ORDERED: Cefepime 2 GM VIAL ONE (19:15)
[2020-05-18 19:25] LABS: Bacteria/HPF None Seen HPF (None Seen); Bilirubin Negative (Negative); Blood, Urine 2+ (Negative); Clarity Clear (Clear); Glucose, Urine (Dipstick) 500 mg/dL (Negative); Ketone, Urine Trace mg/dL (Negative); Leukocyte Negative Leu/uL (Negative); Nitrite Negative (Negative); Protein, Urine (Dipstick) 300 mg/dL (Neg-Trace); Specific Gravity, Urine 1.012 (1.002-1.036); Squamous Epithelial None Seen HPF (0-3); Urobilinogen Normal mg/dL (Less than 2); WBC/HPF 0-3 HPF (0-3)
[2020-05-18] MEDS ORDERED: Fentanyl 100 MCG/2 ML VIAL ONE ×2 (19:33→22:00)
[2020-05-18 19:38] LABS: ALT (SGPT) 13 U/L (8-55); AST (SGOT) 33 U/L (5-34); Albumin 4.3 g/dL (3.4-4.8); Alkaline Phosphatase 83 U/L (40-110); Anion Gap 16 mmol/L (10-20); BUN (Urea Nitrogen) 7 mg/dL (9.8-20.1); Bilirubin, Total 0.9 mg/dL (0.2-1.2); Calc. Creatinine Clearance 0 mL/min (70-130); Calcium 8.8 mg/dL (7.8-10.44); Carbon Dioxide 22 mmol/L (23-31); Chloride 65 mmol/L (98-107); Globulin 3.6 g/dL (2.4-3.5); Glucose 187 mg/dL (83-110); Potassium 3.1 mmol/L (3.5-5.1); Protein, Total 7.9 g/dL (5.8-8.1); Sodium 100 mmol/L (136-145)
[2020-05-18 20:59] LABS: Anion Gap 14 mmol/L (10-20); BUN (Urea Nitrogen) 7 mg/dL (9.8-20.1); Calc. Creatinine Clearance 0 mL/min (70-130); Calcium 7.6 mg/dL (7.8-10.44); Carbon Dioxide 21 mmol/L (23-31); Glucose 164 mg/dL (83-110)
[2020-05-18 21:08] LABS: Chloride 70 mmol/L (98-107); Potassium 2.4 mmol/L (3.5-5.1); Sodium 103 mmol/L (136-145)
[2020-05-18] MEDS ORDERED: Potassium Chloride 20 MEQ TAB ONE (21:35)
[2020-05-18] MEDS ORDERED: Pot Chloride/Pot Bicarb/Cit Ac 25 mEq Effervescent Tablet ONE (21:37)
[2020-05-18] MEDS ORDERED: Potassium Chloride 40 MEQ in Sodium Chloride 0.9% 500 ML IVPB SCH (22:00)
[2020-05-18] MEDS ORDERED: Acetaminophen 325 MG TAB PO PRN (22:31)
[2020-05-18] MEDS ORDERED: Ondansetron PF 4 MG/2 ML Vial IVP PRN (22:31)
[2020-05-18] MEDS ORDERED: hydrALAZINE 20 MG/ML VIAL SLOW IVP PRN (22:38)
[2020-05-18 23:03] LABS: SARS-CoV-2 NAA Rapid Test Not Detected (NotDetected)
[2020-05-18 23:12] LABS: ALT (SGPT) 9 U/L (8-55); AST (SGOT) 23 U/L (5-34); Albumin 3.7 g/dL (3.4-4.8); Alkaline Phosphatase 69 U/L (40-110); Anion Gap 13 mmol/L (10-20); BUN (Urea Nitrogen) 6 mg/dL (9.8-20.1); Bilirubin, Total 0.8 mg/dL (0.2-1.2); Calc. Creatinine Clearance 0 mL/min (70-130); Calcium 7.4 mg/dL (7.8-10.44); Carbon Dioxide 23 mmol/L (23-31); Globulin 2.4 g/dL (2.4-3.5); Glucose 151 mg/dL (83-110); Protein, Total 6.1 g/dL (5.8-8.1)
[2020-05-18 23:18] LABS: Chloride 70 mmol/L (98-107); Potassium 2.4 mmol/L (3.5-5.1); Sodium 104 mmol/L (136-145)
[2020-05-18] MEDS ORDERED: Magnesium Sulfate 4 GM in Sodium Chloride 0.9% 250 ML 250 ML IVPB SCH (23:30)
[2020-05-18] MEDS ORDERED: Sodium Chloride 3% 100 ML IVPB SCH ×2 (23:30→23:36)
[2020-05-18 23:57] LABS: Troponin I 0.039 ng/mL (< 0.028)
[2020-05-19] MEDS ORDERED: hydrALAZINE 20 MG/ML VIAL SLOW IVP PRN (00:44)
[2020-05-19] MEDS ORDERED: Fentanyl 100 MCG/2 ML VIAL SLOW IVP SCH ×2 (01:00→03:00)
[2020-05-19] MEDS: Potassium Chloride 20 MEQ TAB PO SCH ×2 (01:34→05:05)
[2020-05-19 02:08] LABS: ALT (SGPT) 11 U/L (8-55); AST (SGOT) 26 U/L (5-34); Albumin 3.9 g/dL (3.4-4.8); Alkaline Phosphatase 73 U/L (40-110); Anion Gap 13 mmol/L (10-20); BUN (Urea Nitrogen) 5 mg/dL (9.8-20.1); Calc. Creatinine Clearance 0 mL/min (70-130); Calcium 7.9 mg/dL (7.8-10.44); Carbon Dioxide 25 mmol/L (23-31); Globulin 2.8 g/dL (2.4-3.5); Glucose 135 mg/dL (83-110); Protein, Total 6.7 g/dL (5.8-8.1)
[2020-05-19 02:10] LABS: Chloride 71 mmol/L (98-107); Potassium 2.5 mmol/L (3.5-5.1); Sodium 106 mmol/L (136-145)
[2020-05-19 04:18] LABS: #Lymphocytes 0.7 thou/uL (1.20-3.40); #Monocytes 1.2 thou/uL (0.11-0.59); #Neutrophils 6.7 thou/uL (1.40-6.50); %Basophils 0.1 % (0.0-1.0); %Eosinophils 0.1 % (0.0-10.0); %Lymphocytes 7.7 % (21.0-51.0); %Monocytes 14.2 % (0.0-10.0); %Neutrophils 77.8 % (42.0-75.0); Hemoglobin 13.2 g/dL (12.0-16.0); Mean Corpuscular HGB CONC 35.8 g/dL (32.0-36.0); Mean Corpuscular Hemoglobin 32.5 pg (27.0-31.0); Mean Corpuscular Volume 90.8 fL (78.0-98.0); Mean Platelet Volume 6.9 fL (7.4-10.4); Platelet Count 241 thou/uL (130-400); RBC Distribution Width 11.4 % (11.5-14.5); Red Blood Cell (RBC) Count 4.05 mill/uL (4.20-5.40); White Blood Cell (WBC) Count 8.7 thou/uL (4.8-10.8)
[2020-05-19 04:49] LABS: ALT (SGPT) 10 U/L (8-55); AST (SGOT) 24 U/L (5-34); Albumin 3.5 g/dL (3.4-4.8); Alkaline Phosphatase 66 U/L (40-110); Anion Gap 12 mmol/L (10-20); BUN (Urea Nitrogen) 5 mg/dL (9.8-20.1); Bilirubin, Total 0.8 mg/dL (0.2-1.2); Calc. Creatinine Clearance 60 mL/min (70-130); Calcium 7.3 mg/dL (7.8-10.44); Carbon Dioxide 22 mmol/L (23-31); Chloride 75 mmol/L (98-107); Globulin 2.5 g/dL (2.4-3.5); Glucose 127 mg/dL (83-110)
[2020-05-19 04:57] LABS: Sodium 106 mmol/L (136-145)
[2020-05-19 07:17] LABS: Sodium 109 mmol/L (136-145)
[2020-05-19] MEDS ORDERED: FLU VACC QS2020-21(65YR UP)/PF 240 MCG/0.7 ML SYRINGE IM ONE (09:00)
[2020-05-19] MEDS ORDERED: tiZANidine HCl 4 MG TAB PO SCH (09:30)
[2020-05-19] MEDS: Morphine 2 MG/ML VIAL IV PRN ×2 (09:30→15:15)
[2020-05-19] MEDS: Aspirin 81 mg Enteric Coated Tablet PO SCH (09:42)
[2020-05-19] MEDS: Famotidine 20 MG TAB PO SCH ×2 (09:49→21:39)
[2020-05-19] MEDS: Metoprolol Tartrate 25 MG TAB PO SCH ×2 (09:49→21:52)
[2020-05-19] MEDS: Losartan 25 MG TAB PO SCH (09:49)
[2020-05-19] MEDS: Sodium Chloride 3% 500 ML IVPB SCH ×2 (10:05→22:18)
[2020-05-19] MEDS: Potassium Chloride 40 MEQ in Premix Bag 1 BAG IVPB SCH ×2 (10:10→13:32)
[2020-05-19] MEDS ORDERED: Iopamidol 370 76% 100 ML VIAL ONE (10:45)
[2020-05-19 11:51] LABS: Sodium 114 mmol/L (136-145)
[2020-05-19 12:02] LABS: Troponin I 0.027 ng/mL (< 0.028)
[2020-05-19 12:47] LABS: Potassium 4.8 mmol/L (3.5-5.1)
[2020-05-19 12:58] LABS: Troponin I 0.026 ng/mL (< 0.028)
[2020-05-19 13:10] LABS: Sodium 112 mmol/L (136-145)
[2020-05-19 14:40] LABS: Sodium 110 mmol/L (136-145)
[2020-05-19] MEDS: tiZANidine HCl 4 MG TAB PO SCH ×2 (15:22→21:39)
[2020-05-19] MEDS ORDERED: Lorazepam 2 MG/ML VIAL SLOW IVP SCH (15:30)
[2020-05-19 17:07] LABS: Sodium 112 mmol/L (136-145)
[2020-05-19 18:49] LABS: Sodium 114 mmol/L (136-145)
[2020-05-19 21:08] LABS: Sodium 114 mmol/L (136-145)
[2020-05-19 22:25] LABS: Sodium 116 mmol/L (136-145)
[2020-05-20 01:23] LABS: Sodium 118 mmol/L (136-145)
[2020-05-20 02:32] LABS: Sodium 119 mmol/L (136-145)
[2020-05-20 05:20] LABS: #Lymphocytes 0.9 thou/uL (1.20-3.40); #Monocytes 1.1 thou/uL (0.11-0.59); #Neutrophils 6.4 thou/uL (1.40-6.50); %Basophils 0.3 % (0.0-1.0); %Eosinophils 0.3 % (0.0-10.0); %Lymphocytes 10.9 % (21.0-51.0); %Monocytes 12.8 % (0.0-10.0); %Neutrophils 75.8 % (42.0-75.0); Hemoglobin 12.9 g/dL (12.0-16.0); Mean Corpuscular HGB CONC 34.3 g/dL (32.0-36.0); Mean Corpuscular Volume 93.4 fL (78.0-98.0); Mean Platelet Volume 6.8 fL (7.4-10.4); Platelet Count 229 thou/uL (130-400); RBC Distribution Width 11.9 % (11.5-14.5); Red Blood Cell (RBC) Count 4.02 mill/uL (4.20-5.40); White Blood Cell (WBC) Count 8.5 thou/uL (4.8-10.8)
[2020-05-20 05:42] LABS: Anion Gap 12 mmol/L (10-20); BUN (Urea Nitrogen) 12 mg/dL (9.8-20.1); Calc. Creatinine Clearance 52 mL/min (70-130); Calcium 7.9 mg/dL (7.8-10.44); Carbon Dioxide 18 mmol/L (23-31); Chloride 93 mmol/L (98-107); Glucose 97 mg/dL (83-110); Magnesium 2.1 mg/dL (1.6-2.6); Potassium 4.2 mmol/L (3.5-5.1)
[2020-05-20 05:44] LABS: Sodium 119 mmol/L (136-145)
[2020-05-20] MEDS: HYDROcodone/Acetaminophen 5/325 mg Tablet PO PRN ×2 (06:00→14:54)
[2020-05-20 06:24] LABS: Sodium 120 mmol/L (136-145)
[2020-05-20 08:38] LABS: Sodium 121 mmol/L (136-145)
[2020-05-20] MEDS: Famotidine 20 MG TAB PO SCH ×2 (09:05→20:18)
[2020-05-20] MEDS: Aspirin 81 mg Enteric Coated Tablet PO SCH (09:05)
[2020-05-20] MEDS: tiZANidine HCl 4 MG TAB PO SCH ×3 (09:05→20:18)
[2020-05-20] MEDS: Losartan 25 MG TAB PO SCH (09:05)
[2020-05-20] MEDS: Amlodipine 5 MG TAB PO SCH (09:06)
[2020-05-20] MEDS: Amiodarone 200 MG TAB PO SCH (09:06)
[2020-05-20] MEDS: Metoprolol Tartrate 25 MG TAB PO SCH ×2 (09:06→22:30)
[2020-05-20] MEDS: Enoxaparin Sodium 40 MG/0.4 ML SYRINGE SC SCH (09:06)
[2020-05-20] MEDS: Aspirin Chewable 81 MG TAB PO SCH (09:08)
[2020-05-20] MEDS: ALPRAZolam 0.25 MG TAB PO PRN ×2 (10:21→20:18)
[2020-05-20 10:38] LABS: Sodium 121 mmol/L (136-145)
[2020-05-20 12:14] LABS: Sodium 120 mmol/L (136-145)
[2020-05-20] MEDS ORDERED: Labetalol HCl 100 MG/20 ML VIAL SLOW IVP PRN (14:25)
[2020-05-20] MEDS ORDERED: Gabapentin 300 MG CAP PO SCH (14:30)
[2020-05-20 14:40] LABS: Sodium 122 mmol/L (136-145)
[2020-05-20 16:39] LABS: Sodium 121 mmol/L (136-145)
[2020-05-20 18:58] LABS: Sodium 120 mmol/L (136-145)
[2020-05-20] MEDS: Gabapentin 300 MG CAP PO SCH (20:18)
[2020-05-20] MEDS: Sodium Chloride 3% 500 ML IVPB SCH (20:23)
[2020-05-20 20:42] LABS: Sodium 121 mmol/L (136-145)
[2020-05-21 01:03] LABS: Sodium 123 mmol/L (136-145)
[2020-05-21 04:20] LABS: ALT (SGPT) 9 U/L (8-55); AST (SGOT) 16 U/L (5-34); Albumin 3.3 g/dL (3.4-4.8); Alkaline Phosphatase 63 U/L (40-110); Anion Gap 11 mmol/L (10-20); BUN (Urea Nitrogen) 9 mg/dL (9.8-20.1); Bilirubin, Total 0.4 mg/dL (0.2-1.2); Calc. Creatinine Clearance 57 mL/min (70-130); Calcium 7.8 mg/dL (7.8-10.44); Carbon Dioxide 23 mmol/L (23-31); Chloride 95 mmol/L (98-107); Globulin 2.2 g/dL (2.4-3.5); Glucose 93 mg/dL (83-110); Magnesium 1.7 mg/dL (1.6-2.6); Potassium 3.5 mmol/L (3.5-5.1); Protein, Total 5.5 g/dL (5.8-8.1); Sodium 125 mmol/L (136-145)
[2020-05-21 05:01] LABS: Hemoglobin 11.9 g/dL (12.0-16.0); Mean Corpuscular HGB CONC 36.1 g/dL (32.0-36.0); Mean Corpuscular Hemoglobin 34.8 pg (27.0-31.0); Mean Corpuscular Volume 96.4 fL (78.0-98.0); Mean Platelet Volume 7.5 fL (7.4-10.4); Platelet Count 178 thou/uL (130-400); Red Blood Cell (RBC) Count 3.43 mill/uL (4.20-5.40); White Blood Cell (WBC) Count 7.1 thou/uL (4.8-10.8)
[2020-05-21 05:02] LABS: Band 2 % (5-11); Burr Cells SLIGHT = 2-5 cells (100X) (0-1/hpf); Eosinophils 1 % (0-10); Lymphocytes 14 % (21-51); MDiff Complete? YES; Monocytes 12 % (0-10); Neutrophil 69 % (42-75); Reactive Lymphocytes 2 % (0-10)
[2020-05-21] MEDS: HYDROcodone/Acetaminophen 5/325 mg Tablet PO PRN (06:11)
[2020-05-21] MEDS: Morphine 2 MG/ML VIAL IV PRN (09:10)
[2020-05-21] MEDS: Famotidine 20 MG TAB PO SCH ×2 (09:11→21:28)
[2020-05-21] MEDS: Aspirin Chewable 81 MG TAB PO SCH (09:11)
[2020-05-21] MEDS: tiZANidine HCl 4 MG TAB PO SCH ×3 (09:11→21:29)
[2020-05-21] MEDS: Losartan 25 MG TAB PO SCH (09:11)
[2020-05-21] MEDS: Metoprolol Tartrate 25 MG TAB PO SCH ×2 (09:12→21:32)
[2020-05-21] MEDS: Amlodipine 5 MG TAB PO SCH (09:12)
[2020-05-21] MEDS: Amiodarone 200 MG TAB PO SCH (09:14)
[2020-05-21] MEDS: Gabapentin 300 MG CAP PO SCH ×2 (09:14→21:28)
[2020-05-21] MEDS: Enoxaparin Sodium 40 MG/0.4 ML SYRINGE SC SCH (09:14)
[2020-05-21 10:12] LABS: Sodium 126 mmol/L (136-145)
[2020-05-21] MEDS: ALPRAZolam 0.25 MG TAB PO PRN (12:20)
[2020-05-22] MEDS: HYDROcodone/Acetaminophen 5/325 mg Tablet PO PRN ×2 (01:42→13:25)
[2020-05-22] MEDS: ALPRAZolam 0.25 MG TAB PO PRN ×2 (03:44→16:51)
[2020-05-22 07:09] LABS: Anion Gap 13 mmol/L (10-20); BUN (Urea Nitrogen) 9 mg/dL (9.8-20.1); Calc. Creatinine Clearance 55 mL/min (70-130); Calcium 8.4 mg/dL (7.8-10.44); Carbon Dioxide 23 mmol/L (23-31); Chloride 93 mmol/L (98-107); Glucose 87 mg/dL (83-110); Magnesium 1.6 mg/dL (1.6-2.6); Potassium 3.4 mmol/L (3.5-5.1); Sodium 126 mmol/L (136-145)
[2020-05-22] MEDS: Famotidine 20 MG TAB PO SCH ×2 (08:44→21:43)
[2020-05-22] MEDS: Aspirin Chewable 81 MG TAB PO SCH (08:44)
[2020-05-22] MEDS: Losartan 25 MG TAB PO SCH (08:44)
[2020-05-22] MEDS: Gabapentin 300 MG CAP PO SCH ×3 (08:44→21:43)
[2020-05-22] MEDS: tiZANidine HCl 4 MG TAB PO SCH ×3 (08:44→21:42)
[2020-05-22] MEDS: Metoprolol Tartrate 25 MG TAB PO SCH ×2 (08:45→21:43)
[2020-05-22] MEDS: Amlodipine 5 MG TAB PO SCH (08:45)
[2020-05-22] MEDS: Enoxaparin Sodium 40 MG/0.4 ML SYRINGE SC SCH (08:46)
[2020-05-22] MEDS ORDERED: Donnatal Elixir 16.2 MG/5 ML UDCUP PO SCH (17:00)
[2020-05-23] MEDS: HYDROcodone/Acetaminophen 5/325 mg Tablet PO PRN ×3 (05:10→19:50)
[2020-05-23 05:56] LABS: Anion Gap 11 mmol/L (10-20); BUN (Urea Nitrogen) 14 mg/dL (9.8-20.1); Calc. Creatinine Clearance 48 mL/min (70-130); Calcium 8.8 mg/dL (7.8-10.44); Carbon Dioxide 28 mmol/L (23-31); Chloride 94 mmol/L (98-107); Glucose 99 mg/dL (83-110); Magnesium 1.6 mg/dL (1.6-2.6); Potassium 3.6 mmol/L (3.5-5.1); Sodium 129 mmol/L (136-145)
[2020-05-23] MEDS: ALPRAZolam 0.25 MG TAB PO PRN ×2 (06:33→19:50)
[2020-05-23] MEDS: tiZANidine HCl 4 MG TAB PO SCH ×3 (09:34→18:13)
[2020-05-23] MEDS: Enoxaparin Sodium 40 MG/0.4 ML SYRINGE SC SCH (09:35)
[2020-05-23] MEDS: Aspirin Chewable 81 MG TAB PO SCH (09:35)
[2020-05-23] MEDS: Gabapentin 300 MG CAP PO SCH ×4 (09:35→19:49)
[2020-05-23] MEDS: Famotidine 20 MG TAB PO SCH ×2 (09:35→19:49)
[2020-05-23] MEDS: Amlodipine 5 MG TAB PO SCH (09:36)
[2020-05-23] MEDS: Metoprolol Tartrate 25 MG TAB PO SCH ×2 (09:39→19:50)
[2020-05-23] MEDS: Losartan 25 MG TAB PO SCH (09:39)
[2020-05-23] MEDS ORDERED: tiZANidine HCl 4 MG TAB PO PRN (16:14)
[2020-05-24 07:14] LABS: Anion Gap 12 mmol/L (10-20); BUN (Urea Nitrogen) 16 mg/dL (9.8-20.1); Calc. Creatinine Clearance 55 mL/min (70-130); Calcium 8.8 mg/dL (7.8-10.44); Carbon Dioxide 27 mmol/L (23-31); Chloride 97 mmol/L (98-107); Glucose 90 mg/dL (83-110); Potassium 3.9 mmol/L (3.5-5.1); Sodium 132 mmol/L (136-145)
[2020-05-24] MEDS: HYDROcodone/Acetaminophen 5/325 mg Tablet PO PRN ×3 (08:28→19:16)
[2020-05-24] MEDS: Metoprolol Tartrate 25 MG TAB PO SCH ×2 (08:30→20:19)
[2020-05-24] MEDS: Famotidine 20 MG TAB PO SCH ×2 (08:30→20:19)
[2020-05-24] MEDS: Aspirin Chewable 81 MG TAB PO SCH (08:30)
[2020-05-24] MEDS: Gabapentin 300 MG CAP PO SCH ×2 (08:31→20:19)
[2020-05-24] MEDS: Losartan 25 MG TAB PO SCH (08:31)
[2020-05-24] MEDS: Amlodipine 5 MG TAB PO SCH (08:31)
[2020-05-24] MEDS: Enoxaparin Sodium 40 MG/0.4 ML SYRINGE SC SCH (08:33)
[2020-05-25] MEDS: HYDROcodone/Acetaminophen 5/325 mg Tablet PO PRN ×3 (04:21→19:59)
[2020-05-25 07:29] LABS: Anion Gap 13 mmol/L (10-20); BUN (Urea Nitrogen) 13 mg/dL (9.8-20.1); Calc. Creatinine Clearance 52 mL/min (70-130); Calcium 9.2 mg/dL (7.8-10.44); Carbon Dioxide 28 mmol/L (23-31); Chloride 95 mmol/L (98-107); Glucose 90 mg/dL (83-110); Sodium 132 mmol/L (136-145)
[2020-05-25] MEDS: Metoprolol Tartrate 25 MG TAB PO SCH ×2 (09:01→19:58)
[2020-05-25] MEDS: Losartan 25 MG TAB PO SCH (09:01)
[2020-05-25] MEDS: Amlodipine 5 MG TAB PO SCH (09:01)
[2020-05-25] MEDS: Aspirin Chewable 81 MG TAB PO SCH (09:01)
[2020-05-25] MEDS: Gabapentin 300 MG CAP PO SCH ×2 (09:01→20:00)
[2020-05-25] MEDS: Famotidine 20 MG TAB PO SCH ×2 (09:02→19:58)
[2020-05-25] MEDS: Enoxaparin Sodium 40 MG/0.4 ML SYRINGE SC SCH (09:02)
[2020-05-25] MEDS: Morphine 2 MG/ML VIAL IV PRN (10:52)
[2020-05-25] MEDS: Mag-Al 1200 mg/1200 mg/30 ML UDCUP PO PRN (14:26)
[2020-05-25] MEDS ORDERED: Fleet Enema 133 ML BOT PR SCH (19:15)
[2020-05-25 22:10] LABS: SARS-CoV-2 PCR by NAA Not Detected (NotDetected)
[2020-05-26] MEDS: Famotidine 20 MG TAB PO SCH ×2 (07:58→20:23)
[2020-05-26] MEDS: Losartan 25 MG TAB PO SCH (07:58)
[2020-05-26] MEDS: HYDROcodone/Acetaminophen 5/325 mg Tablet PO PRN ×3 (07:58→22:22)
[2020-05-26] MEDS: Aspirin Chewable 81 MG TAB PO SCH (07:58)
[2020-05-26] MEDS: Amlodipine 5 MG TAB PO SCH (07:59)
[2020-05-26] MEDS: Gabapentin 300 MG CAP PO SCH ×2 (08:00→20:23)
[2020-05-26] MEDS: Metoprolol Tartrate 25 MG TAB PO SCH ×2 (08:00→20:23)
[2020-05-26] MEDS: Enoxaparin Sodium 40 MG/0.4 ML SYRINGE SC SCH (08:02)
[2020-05-26 08:17] LABS: Anion Gap 14 mmol/L (10-20); BUN (Urea Nitrogen) 11 mg/dL (9.8-20.1); Calc. Creatinine Clearance 49 mL/min (70-130); Calcium 9.6 mg/dL (7.8-10.44); Carbon Dioxide 30 mmol/L (23-31); Chloride 93 mmol/L (98-107); Glucose 100 mg/dL (83-110); Potassium 4.1 mmol/L (3.5-5.1); Sodium 133 mmol/L (136-145)
[2020-05-26] MEDS: Morphine 2 MG/ML VIAL IV PRN (10:12)
[2020-05-26] MEDS ORDERED: Escitalopram Oxalate 10 mg Tablet PO SCH (14:00)
[2020-05-26] MEDS: Mag-Al 1200 mg/1200 mg/30 ML UDCUP PO PRN (14:34)
[2020-05-26] MEDS: ALPRAZolam 0.5 MG TAB PO SCH (20:23)
[2020-05-26] MEDS ORDERED: traZODone HCl 50 MG TAB PO SCH (21:00)
[2020-05-27] MEDS: HYDROcodone/Acetaminophen 5/325 mg Tablet PO PRN (06:25)
[2020-05-27 07:44] LABS: Anion Gap 12 mmol/L (10-20); BUN (Urea Nitrogen) 13 mg/dL (9.8-20.1); Calc. Creatinine Clearance 48 mL/min (70-130); Calcium 9.4 mg/dL (7.8-10.44); Carbon Dioxide 31 mmol/L (23-31); Chloride 92 mmol/L (98-107); Glucose 96 mg/dL (83-110); Potassium 4.7 mmol/L (3.5-5.1); Sodium 130 mmol/L (136-145)
[2020-05-27 08:17] VITALS: BP 144/86; TEMP 98
[2020-05-27] MEDS: Aspirin Chewable 81 MG TAB PO SCH (08:26)
[2020-05-27] MEDS: Famotidine 20 MG TAB PO SCH (08:26)
[2020-05-27] MEDS: ALPRAZolam 0.5 MG TAB PO SCH (08:26)
[2020-05-27] MEDS: Amlodipine 5 MG TAB PO SCH (08:26)
[2020-05-27] MEDS: Metoprolol Tartrate 25 MG TAB PO SCH (08:30)
[2020-05-27] MEDS: Enoxaparin Sodium 40 MG/0.4 ML SYRINGE SC SCH (08:30)
[2020-05-27] MEDS: Gabapentin 300 MG CAP PO SCH (08:31)
[2020-05-27] MEDS: Losartan 25 MG TAB PO SCH (08:31)
[2020-05-27] MEDS: Morphine 2 MG/ML VIAL IV PRN (08:32)
[2020-05-27] MEDS ORDERED: Escitalopram Oxalate 10 mg Tablet PO SCH (09:00)
== END 2020-05-27 14:59 | DRG 595 ==
LOC: ERS 18:01 → CCU 23:06 → T4-A 05-21 16:28
PROVIDERS: ADMIT Internal Medicine; ATTEND Internal Medicine
PROC: 06HY33Z Insertion of Infusion Device into Lower Vein, Percutaneous Approach (ICD-10-PCS; principal; 2020-05-18)
DX: B02.9 Zoster without complications (principal); G93.41 Metabolic encephalopathy; E22.2 Syndrome of inappropriate secretion of antidiuretic hormone; N18.30 Chronic kidney disease, stage 3 unspecified; I12.9 Hypertensive chronic kidney disease with stage 1 through stage 4 chronic kidney disease, or unspecified chronic kidney disease; I48.0 Paroxysmal atrial fibrillation; I25.10 Atherosclerotic heart disease of native coronary artery without angina pectoris; F32.9 Major depressive disorder, single episode, unspecified; F41.9 Anxiety disorder, unspecified; Z66 Do not resuscitate; E78.5 Hyperlipidemia, unspecified; E86.0 Dehydration; E87.6 Hypokalemia; Z96.651 Presence of right artificial knee joint; G89.29 Other chronic pain; M54.9 Dorsalgia, unspecified; Z88.5 Allergy status to narcotic agent; Z88.2 Allergy status to sulfonamides; Z88.8 Allergy status to other drugs, medicaments and biological substances; Z95.1 Presence of aortocoronary bypass graft; Z79.899 Other long term (current) drug therapy; Z90.49 Acquired absence of other specified parts of digestive tract; Z90.710 Acquired absence of both cervix and uterus
CPT/HCPCS: 36415; 36556; 51701; 70450; 71045; 74177; 80048; 80053; 81003; 81015; 83605; 83735; 83930; 83935; 84295; 84300; 84484; 85025; 87040; 87086; 87635; 93005; 94760; 96365; 96366; 96367; 96368; 96375; 96376; J0133; J0360; J0692; J1650; J2060; J2270; J2405; J3010; J3370; J3475; J3480; J3490; J7030; J7050; J7131; Q9967; U0002; U0003; U0005